=== PATIENT | female | born 1960 | race Caucasian/White ===

== ENCOUNTER → 2016-07-05 | Outpatient (CLI) | payer BC ==
[~2016-07-05] MED LIST: ALBU1AER9 INH; ATOR-14 PO; BUPR100T13 PO; IBUP200C9 PO; LORA0.5T12 PO; OMEP20CA9 PO; ONDA4TAB46 PO; VENL150T33 PO
[2016-07-08 03:10] LABS: CHLAMYDIA TRACH RNA*** NOT DETECTED (NOT DETECTED); GC (NEIS GONORRHOEAE)RNA** NOT DETECTED (NOT DETECTED)
== END | disposition home or self-care (01) ==
LOC: C.LABSPEC 17:57
PROVIDERS: ATTEND Obstetrics & Gynecology
DX: N94.89 Other specified conditions associated with female genital organs and menstrual cycle (principal)

== ENCOUNTER → 2016-09-20 | Outpatient (CLI) | payer BC ==
--- NOTE | 2016-09-21 12:43 | MAMMOGRAPHY REPORT ---
BILATERAL DIGITAL SCREENING MAMMOGRAM TOMOSYNTHESIS WITH CAD: 09/20/2016 CLINICAL HISTORY: Routine screening. Patient has no complaints. TECHNIQUE: Breast tomosynthesis in addition to standard 2D mammography was performed. Current study was also evaluated with a Computer Aided Detection (CAD) system. COMPARISON: Comparison is made to exams dated: 09/09/2014 mammogram, 09/08/2013 mammogram, 09/04/2012 stefany mogram, 12/18/2011 mammogram, 06/14/2011 mammogram, and 06/11/2011 mammogram - [facility] BREAST COMPOSITION: The tissue of both breasts is heterogeneously dense, which may obscure small mas ses. FINDINGS: No suspicious masses, calcifications, or areas of architectural distortion are noted in ei ther breast. There has been no significant interval change compared to prior exams. Scattered bilater al benign-appearing calcifications are not significantly changed. IMPRESSION: ACR BI-RADS CATEGORY 2: BENIGN There is no mammographic evidence of malignancy. A 1 year screening mammogram is recommended. The pa tient will receive written notification of the results. Approximately 10% of breast cancers are not detected with mammography. A negative mammographic report should not delay biopsy if a clinically suggestive mass is present. Ness Monique M.D. ah/:09/20/2016 16:00:57 Tank Car Mechanic: Jeanine BLANCA)(Yohan)(BD), [facility] letter sent: Normal 1/2 BI-RADS Code: ACR BI-RADS Category 2: Benign
== END | disposition home or self-care (01) ==
LOC: C.MAMM 11:46
PROVIDERS: ATTEND Obstetrics & Gynecology
DX: Z12.31 Encounter for screening mammogram for malignant neoplasm of breast (principal)

== ENCOUNTER → 2017-01-30 | Outpatient (CLI) | payer BC ==
[2017-01-30 13:48] LABS: HEMATOCRIT 40.6 % (37-47); MEAN CELL VOLUME 92.1 fL (80-100); MEAN CORPUSCULAR HEMOGLOBIN 29.7 pg (25-34); MEAN CORPUSCULAR HGB CONC 32.3 g/dl (32-36); MEAN PLATELET VOLUME 10.2 fL (7.4-10.4); PLATELET COUNT 344 K/uL (130-400); RED BLOOD COUNT 4.41 M/uL (4.2-5.4); WHITE BLOOD COUNT 8.02 K/uL (4.8-10.8)
[2017-01-30 14:35] LABS: LYME DISEASE AB IGG NEG (NEG); LYME DISEASE AB IGM NEG (NEG)
[2017-01-30 14:44] LABS: ALT/SGPT 33 U/L (12-78); AST/SGOT 12 U/L (15-37); BLOOD UREA NITROGEN 11 mg/dl (7-18); BUN/CREATININE RATIO 14.8 (10-20); CALCIUM 9.1 mg/dl (8.5-10.1); CARBON DIOXIDE 27 mmol/L (21-32); CHLORIDE 106 mmol/L (98-107); CREATININE 0.76 mg/dl (0.60-1.20); GLUCOSE 103 mg/dl (70-99); POTASSIUM 4.5 mmol/L (3.5-5.1); SODIUM 139 mmol/L (136-145)
[2017-01-30 14:56] LABS: ALKALINE PHOSPHATASE 95 U/L (45-117)
[2017-01-31 06:57] LABS: ESTIMATED AVERAGE GLUCOSE 128 mg/dl; HA1C FLAG Normal (Normal)
== END | disposition home or self-care (01) ==
LOC: C.LABBC 10:23
PROVIDERS: ATTEND Physician Assistant Medical
DX: Z00.00 Encounter for general adult medical examination without abnormal findings (principal); R73.09 Other abnormal glucose; F32.9 Major depressive disorder, single episode, unspecified; E78.5 Hyperlipidemia, unspecified; R47.89 Other speech disturbances; K21.9 Gastro-esophageal reflux disease without esophagitis

== ENCOUNTER → 2017-05-06 | Outpatient (CLI) | payer BC ==
[~2017-05-06] MED LIST changes: +IBUP1CAP30 PO; -IBUP200C9 PO
== END | disposition home or self-care (01) ==
LOC: C.PAPS 17:15
PROVIDERS: ATTEND Obstetrics & Gynecology
DX: Z01.419 Encounter for gynecological examination (general) (routine) without abnormal findings (principal)

== ENCOUNTER 2022-10-24 08:33 | Observation (INO) ==
[2022-10-24 09:50] LABS: Basophils # (auto) 0.04 K/uL (0-0.2); Basophils % (auto) 0.6 %; Eosinophils # (auto) 0.17 K/uL (0-0.50); Eosinophils % (auto) 2.7 %; Hematocrit (blood only) 37.2 % (37.0-47.0); Hemoglobin 12.5 g/dl (12.0-16.0); Immature Granulocytes # (auto) 0.01 K/uL (0.01-0.20); Immature Granulocytes % (auto) 0.2 %; Lymphocytes # (auto) 1.98 K/uL (1.2-3.4); Lymphocytes % (auto) 30.9 %; Mean Corpuscular Hemoglobin 30.4 pg (25.0-34.0); Mean Corpuscular Hgb Conc 33.6 g/dL (32.0-36.0); Mean Corpuscular Volume 90.5 fL (80.0-100.0); Mean Platelet Volume 11.6 fL (9.4-12.4); Monocytes # (auto) 0.73 K/uL (0.11-0.59); Monocytes % (auto) 11.4 %; Neutrophils # (auto) 3.48 K/uL (1.40-6.50); Neutrophils % (auto) 54.2 %; Platelet Count 208 K/uL (130-400); RDW Coefficient of Variation 14.3 % (11.5-14.5); RDW Standard Deviation 47.5 fL (36.4-46.3); Red Blood Count 4.11 M/uL (4.20-5.40); White Blood Count 6.41 K/ul (4.8-10.8)
--- NOTE | 2022-10-24 10:02 | CT Scan Report ---
HEAD CT NONCONTRAST CT DOSE: 547.75 mGy.cm HISTORY: Closed head injury. Dementia. TECHNIQUE: Multiaxial CT images of the head were performed without the use of intravenous contrast. A utomated exposure control was utilized for this study. A dose lowering technique was utilized adheri ng to the principles of ALARA. Comparison: Head CT 04/05/2009. Findings: Mild mucosal thickening within the right posterior ethmoid air cells and right sphenoid sin us. No fluid levels within the paranasal sinuses. The mastoid air cells are clear. Slight offset with in the left nasal bone consistent with an age-indeterminate fracture. The calvarium and skull base ar e intact. There is no mass, hematoma, midline shift, acute infarct. White matter hypodensity is nonsp ecific but suggestive of mild microvascular ischemic change. The ventricles and sulci demonstrate mil d age-related involutional changes. Impression: 1. No acute intracranial abnormality. 2. Frontal scalp swelling. 3. Slight offset within the left nasal bone consistent with an age-indeterminate fracture. ACT 112: Negative or not required by law. Electronically signed by: Yovani Brannon M.D. 10/24/2022 9:59 AM
[2022-10-24 10:11] LABS: Albumin Globulin Ratio 1.7 (0.9-2); BUN Creatinine Ratio 11.8 (10-20); Bilirubin,Total 0.9 mg/dl (0.2-1.0); Calcium 9.2 mg/dl (8.6-10.3); Creatinine Clr Calc Pharmacy 76.4 ml/min; Est GFR (African American) 110.2 ml/min; Est GFR (Non-African American) 95.1 ml/min; Globulin 2.3 gm/dl (2.5-4.0); Magnesium 1.8 mg/dl (1.7-2.4); Potassium 3.1 mmol/L (3.5-5.1); Total Protein 6.3 gm/dl (6.0-8.3)
[2022-10-24 10:15] LABS: Troponin I High Sensitivity 4.6 pg/ml (0-14)
[2022-10-24 10:52] LABS: Appearance Urine Clear (Clear); Bilirubin Urine Negative (Negative); Blood Urine Negative (Negative); Color Urine Yellow; Glucose Urine UA Negative (Negative); Ketones Urine Negative (Negative); Leukocyte Esterase Urine Negative (Negative); Nitrite Urine Negative (Negative); Protein Urine Negative (Negative); Specific Gravity Urine 1.012 (1.000-1.030); Urobilinogen Urine Negative (Negative); pH Urine 6.5 (4.5-7.5)
[2022-10-24] MEDS ORDERED: POTASSIUM CHLORIDE CRTAB 20 MEQ TABCR PO STA (11:00)
[2022-10-24] MEDS ORDERED: POTASSIUM CHLORIDE 10 MEQ TABCR PO STA (11:05)
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
[2022-10-24] MEDS ORDERED: ACETAMINOPHEN 500 MG TAB PO STA (13:43)
[2022-10-24] MEDS ORDERED: QUEtiapine FUMARATE 25 MG TABLET PO STA (13:43)
--- NOTE | 2022-10-24 15:29 | History & Physical Report ---
Date of Service October 24, 2022 Assessment & Plan (1) Dementia: Plan: Supportive care. Multiple medications with psychiatric effects are discontinued. She has been started on Seroquel 25 mg twice a day. (2) Hypokalemia: Plan: Oral supplementation. Serial labs (3) Primary hypothyroidism: Plan: Continue Synthroid replacement therapy Plan Anticipate discharge to [facility] dementia unit tomorrowOctober 25 History of Present Illness Chief Complaint: Exacerbation confusion and disorientation Primary Care Provider: NO PCP 62-year-old female with a history of dementia. Family has made arrangements for admission to [facility] lockdown unit tomorrow, October 25, but the patient was found wandering in the neighborhood and afraid and was brought to the ED for evaluation. All of her dementia medications are discontinued and she has been started on Seroquel. Mild hypokalemia is being corrected. We will continue thyroid replacement for now. Anticipate discharge to [facility] tomorrowOctober 25 Allergies Allergy/AdvReac Type Severity Reaction Status Date / Time No Known Drug Allergies Allergy Verified 10/16/22 13:24 Home Medications Medication Instructions Recorded Confirmed Type albuterol sulfate 90 mcg/actuation 2 puffs inhalation .COMPLEX PRN 07/28/18 10/24/22 History aerosol inhaler shortness of breath multivitamin 1 tab PO DAILY 07/28/18 10/24/22 History bupropion HCl 150 mg 24 hr tablet, See Rx Instructions .Route 11/28/20 10/24/22 Rx extended release .COMPLEX #90 tabs aripiprazole 5 mg tablet 5 mg PO DAILY 08/25/21 10/24/22 History omeprazole 40 mg capsule,delayed 40 mg PO DAILY #90 caps 12/04/21 10/24/22 Rx release atorvastatin 10 mg tablet 10 mg PO HS #90 tabs 06/04/22 10/24/22 Rx cholecalciferol (vitamin D3) 50 50 mcg PO DAILY #90 caps 10/16/22 10/24/22 Rx mcg (2,000 unit) capsule donepezil 10 mg tablet 10 mg PO DAILY #30 tabs 10/16/22 10/24/22 Rx duloxetine 30 mg capsule,delayed See Rx Instructions .Route 10/16/22 10/24/22 Rx release .COMPLEX #30 caps buspirone 5 mg tablet 5 mg PO DAILY 10/24/22 10/24/22 History Past Med/Surg History Medical History Acid reflux disease Anxiety Asthma Attention deficit disorder (ADD) in adult Bilateral high frequency sensorineural hearing loss Depression Dyslipidemia Elevated blood pressure reading without diagnosis of hypertension Fibrocystic breast disease H/O nonmelanoma skin cancer Horseshoe kidney Impaired glucose regulation Nephrolithiasis Vitamin D deficiency Surgical History H/O breast biopsy H/O section History of tonsillectomy and adenoidectomy History of tooth extraction S/P conization of cervix Family History Father Hypertension Mother Breast cancer Grandmother (Maternal) Heart disease Grandmother (Paternal) Cancer Grandfather (Paternal) Cancer Other Asthma Depression Dyslipidemia Denies family history of Sudden SIDS (sudden infant syndrome) Ovarian cancer Prostate cancer Diabetes Deep vein thrombosis Osteoporosis Cerebral aneurysm Alzheimer disease Bipolar disorder Clotting disorder Crohn's disease Dementia Kidney disease Schizophrenia Congenital kidney disease Gestational diabetes Lung cancer COPD (chronic obstructive pulmonary disease) Colorectal cancer Pulmonary embolism Lung disease Ulcerative colitis Colonic polyp Stroke Cystic kidney disease Social History Smoking Status: Unknown if ever smoked Hx Alcohol Use: Yes Alcohol Intake Frequency: 2-4 x/Month Hx Substance Use: Yes (medical ) Preferred Language: [place] Communication Ability: Effective Visual Impairment: No Limitations Hearing Ability: Normal marital status: Single Current Living Situation: Family Current Living Situation Comment: Daughter current occupational status: employed and retired How many Children do You have: 2 Feels Safe at Home: Declines to Answer Childhood Exposure to Second-Hand Smoke: No caffeine: Yes Dental Care, Regularly: Yes Physical Activity Frequency: Does not Exercise Seatbelt Use: always Sunscreen Use: Yes Review of Systems Review of Systems: The patient is unable to answer any questions regarding review of systems at this time Physical Exam Physical Exam: The patient will not allow me to examine her. She is ambulating in the ED and does not appear to have any focal motor deficits Results & Data Results & Data Vital Signs (Past 12 Hours) Vital Signs Temp Pulse Pulse Resp BP BP Pulse Ox 10/24/22 12:58 105 H 20 112/80 97 10/24/22 09:32 36.6 C 80 18 117/82 99 10/24/22 08:48 36.6 C 80 18 117/82 99 O2 Del Method 10/24/22 12:58 Room Air 10/24/22 09:32 Room Air 10/24/22 08:48 Room Air Laboratory Results 10/24/22 09:19 10/24/22 09:19 PG Care Time/CCT Total # of Minutes Spent Total Time Spent with Patient: Total time spent is greater than 50% in coordination of care (as documented) at patient's floor/unit and/or counseling patient: Coding Level of Care Code 53954 INT INP/OBS CARE 3/75MIN Diagnoses Dementia F03.90 Hypokalemia E87.6 Primary hypothyroidism E03.9
[2022-10-24] MEDS ORDERED: OLANZapine 10 MG/2.1 ML SDV IM STA (15:37)
--- NOTE | 2022-10-24 15:48 | Electrocardiogram Report ---
Test Reason : Blood Pressure : / mmHG Vent. Rate : 088 BPM Atrial Rate : 088 BPM P-R Int : 124 ms QRS Dur : 078 ms QT Int : 362 ms P-R-T Axes : 055 052 043 degrees QTc Int : 438 ms Sinus rhythm with Premature atrial complexes Septal infarct , age undetermined Abnormal ECG When compared with ECG of 20-JUN-2012 12:49, Premature atrial complexes are now Present Septal infarct is now Present Confirmed by Chava Liang ([id number]) on 10/24/2022 3:47:56 PM Referred By: REFERRED SELF Confirmed By:Chava Liang
[2022-10-24] MEDS ORDERED: LORazepam 2 MG/1 ML VIAL ONE (19:21)
[2022-10-24] MEDS ORDERED: LORazepam 2 MG/1 ML VIAL IV STA (19:25)
[2022-10-24] MEDS ORDERED: ATORVASTATIN 10 MG TAB PO ONE (21:00)
[2022-10-25] MEDS ORDERED: ALBUTEROL HFA 8 GM INHALER INH PRN (06:24)
[2022-10-25] MEDS ORDERED: QUEtiapine FUMARATE 25 MG TABLET PO SCH (07:00)
[2022-10-25 08:47] LABS: BUN Creatinine Ratio 16.7 (10-20); Calcium 9.3 mg/dl (8.6-10.3); Creatinine Clr Calc Pharmacy 86.6 ml/min; Est GFR (African American) 114.8 ml/min; Est GFR (Non-African American) 99.1 ml/min; Potassium 4.1 mmol/L (3.5-5.1)
[2022-10-25] MEDS ORDERED: PANTOprazole 40 MG TAB PO SCH (09:00)
[2022-10-25] MEDS ORDERED: CHOLECALCIFEROL 1,000 UNITS 25 MCG TAB PO SCH (09:00)
[2022-10-25] MEDS ORDERED: MULTIVITAMIN TAB PO SCH (09:00)
--- NOTE | 2022-10-25 15:12 | Discharge Summary ---
Date of Service October 25, 2022 Admission HPI Per Admitting Provider 62-year-old female with a history of dementia. Family has made arrangements for admission to [facility] lockdown unit tomorrow, October 25, but the patient was found wandering in the neighborhood and afraid and was brought to the ED for evaluation. All of her dementia medications are discontinued and she has been started on Seroquel. Mild hypokalemia is being corrected. We will continue thyroid replacement for now. Anticipate discharge to [facility] tomorrOctober 25 Discharge Data Allergies Allergy/AdvReac Type Severity Reaction Status Date / Time No Known Drug Allergies Allergy Verified 10/16/22 13:24 Consultations 10/24/22 15:09 ED Decision to Admit Stat Ordered Studies 10/24/22 09:05 CT head/brain wo con Stat Discharge Plan Discharge Items Patient Disposition: Personal [facility] Reason For Visit: CONFUSION Discharge Diagnosis: 1. worsening dementia - uncertain etiology - ?frontotemporal dementia vs pseudodementia vs other?; follows with [facility] and [facility] (Dr Harlan Berman) 2. hypothyroidism 3. GERD 4. h/o asthma 5. h/o horseshoe kidney 6. hearing loss 7. h/o PTSD 8. presumed fall with small hematoma/bruise on forehead; CT head negative 9. sinus tachycardia - due to anxiety/agitation; EKG otherwise wnl 10. history of traumatic brain injury as child Activity: Resume your previous activity Non-emergency contact: Primary Care Provider Call non-emergency contact if: you have any medication questions Follow-up/Referrals: PCP,NO [Primary Care Provider] - Diet: Regular Addtl Attending Provider Instructions: Ms Castellon was admitted to [facility] while awaiting placement at [facility] in [place]. There was no evidence of any infectious process while here. COVID testing was negative. U/a was negative. CT head showed mild frontal scalp swelling but no intracranial hemorrhage. She has a bruise on her forehead consistent with the CT head. This is presumed due to a recent fall with head injury. Labs were generally unremarkable. EKG x [address] changes. She is tachycardic at times (sinus tach) particularly when agitated or anxious. TSH level was normal. Patient has a progressive aphasia and has difficulty answering questions. She was started on seroquel 25mg twice daily for agitation/behavioral disturbance. She tolerated this without side effects. QTc on EKG was normal before and after institution of seroquel. She should continue to follow with [facility] (in [facility]) as well as psychiatry. Psychiatry has managed her psychotropic medications in the past by report. Aricept was stopped as the benefits are likely outweighed by risks/side effects (QTc prolongation, bradycardia, etc); furthermore, her dementia has progressed despite taking the Aricept. Pending Studies at Discharge: No Stand-Alone Forms: My [employer], Smoking Cessation Skilled Items Patient informed of condition?: No DNR: No Discharge Level of Care: Other Communicable Disease: No (COVID test negative on 10/25/22) Discharge Prognosis: Other Lines: None Urinary Catheter: No Medications and DC Order Prescriptions: New quetiapine 25 mg Tablet 25 mg PO BID Qty: 60 2RF Continued omeprazole 40 mg capsule,delayed release(DR/EC) 40 mg PO DAILY Qty: 90 3RF atorvastatin 10 mg tablet 10 mg PO HS Qty: 90 3RF cholecalciferol (vitamin D3) 50 mcg (2,000 unit) capsule 50 mcg PO DAILY Qty: 90 0RF multivitamin tablet 1 tab PO DAILY albuterol sulfate 90 mcg/actuation HFA aerosol inhaler 2 puffs inhalation .COMPLEX PRN (Reason: shortness of breath) Patient Comments: 2 puff inhalation every 4-6 hours PRN; Rx Instructions: 2 puff inhalation every 4-6 hours PRN; Changed bupropion HCl 150 mg tablet extended release 24 hr 150 mg PO DAILY Qty: 90 3RF Dose Instruction: TAKE 1 TABLET BY MOUTH IN THE MORNING duloxetine 30 mg capsule,delayed release(DR/EC) 30 mg PO DAILY Qty: 30 3RF Dose Instruction: TAKE 1 CAPSULE BY MOUTH DAILY Discontinued donepezil 10 mg tablet 10 mg PO DAILY Qty: 30 2RF Hold Instructions: pt not taking aripiprazole 5 mg tablet 5 mg PO DAILY Hold Instructions: pt not taking buspirone 5 mg tablet 5 mg PO DAILY Discharge Orders: Discharge Order (Routine); Ordered 10/25/22 Ordered By: Lj Duggan Admission Data Admit Date/Time: 10/24/22 15:34 Attending Provider: Siuta,Lj R Admit Provider: Kale Silva Primary Care Provider: PCP,NO Other Providers: Kale Silva Coding Diagnoses
--- NOTE | 2022-10-25 15:59 | Electrocardiogram Report ---
Test Reason : Blood Pressure : / mmHG Vent. Rate : 112 BPM Atrial Rate : 112 BPM P-R Int : 124 ms QRS Dur : 076 ms QT Int : 316 ms P-R-T Axes : 071 028 037 degrees QTc Int : 431 ms Sinus tachycardia Septal infarct (cited on or before 24-OCT-2022) Abnormal ECG When compared with ECG of 24-OCT-2022 09:12, Premature atrial complexes are no longer Present Confirmed by Chava Liang ([id number]) on 10/25/2022 3:58:42 PM Referred By: REFERRED SELF Confirmed By:Chava Liang
== END 2022-10-25 14:50 | disposition home or self-care (01) ==
LOC: ED 08:33 → EDINP 08:33 → SUATTDRO 15:34 → EDINP 19:02